=== PATIENT | female | born 2000 ===

== ENCOUNTER 2022-12-17 23:27 | Emergency (ER) | payer MEDICAID, SELFPAY ==
--- NOTE | ~2022-12-17 | XR_ITS ---
EXAMINATION: XR CHEST CLINICAL INFORMATION: Shortness of breath COMPARISON: None available. TECHNIQUE: PA and lateral views of the chest were obtained. FINDINGS: Lungs are clear. No consolidation, pneumothorax, or pleural effusion. Cardiac and mediastinal contours are normal. Pulmonary vasculature is unremarkable. Trachea is midline. Osseous structures are unremarkable. XR/XR chest 2V IMPRESSION: No acute cardiopulmonary findings.
[2022-12-17 23:30] VITALS: BP 128/61; PULSE 98; RESP 22; TEMP 36.6; O2SAT 95; BMI 33.3
--- OUTSIDE RECORDS SUMMARY | 2022-12-18 00:29 | XMS_ITS | Continuity of Care Document ---
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
--- NOTE | 2022-12-18 00:43 | PC.NURSE ---
patient was coming in for complaints of coughing patient is being seen by the doctor patient will continue to be monitored for safety
--- NOTE | 2022-12-18 00:50 | ED.SOB ---
HPI - SOB/Dyspnea General Chief Complaint: Dyspnea Stated Complaint: SoB Time Seen by Provider: 12/18/22 00:01 Source: patient and family Mode of arrival: ambulatory History of Present Illness HPI Narrative: 22-year-old female with history of asthma and complaints of ongoing cough and increasing shortness of breath over the past couple of days denies any chest pain. Related Data Previous Rx's Medication Instructions Recorded prednisone 20 mg tablet 40 mg PO DAILY 4 days #8 tabs 12/18/22 Allergies Allergy/AdvReac Type Severity Reaction Status Date / Time No Known Allergies Allergy Verified 12/18/22 00:55 Review of Systems Review of Systems: Pertinent positives and negatives as stated in HPI PMFSH Past Medical History Source: nursing notes reviewed Social History Social History Alcohol intake: never Smoked in Last 30 Days: No Use of substances other than those prescribed or required for medical reasons: No Advance Directives: No Advance Directives Information Provided: No Patient : No Physical Exam Vital Signs: Vital Signs: Last Vital Signs Temp 98 F 12/17/22 23:30 Pulse 98 12/17/22 23:30 Resp 22 H 12/17/22 23:30 BP 128/61 12/17/22 23:30 Pulse Ox 95 12/17/22 23:30 O2 Del Method Room Air 12/17/22 23:30 BMI result Body Mass Index 33.3 VITAL SIGNS: Reviewed. GENERAL: Well developed, well nourished, in no acute distress. HEAD: Normocephalic/atraumatic EYES: PERRLA, EOMI EARS: Ext canals without abnormality, TMs non-bulging and non-erythematous NOSE: Nares patent bilateral OROPHARYNX: no oral lesions noted, posterior pharynx clear and non-erythematous without noted tonsillar enlargement/erythema/exudates NECK: Supple, no adenopathy LUNGS: Normal breath sounds. No adventitious sounds or accessory muscle use. SpO2<95> CARDIOVASCULAR: Regular rate and rhythm without noted murmurs, no JVD or lower extremity edema. ABDOMEN: Soft, non-tender, non-distended with bowel sounds. MUSCULOSKELETAL: No tenderness, deformities, or effusions noted on gross inspection. EXTREMITIES: No cyanosis, clubbing or edema. SKIN: Inspection of the skin reveals no rashes NEUROLOGIC: Alert and oriented x 4. Strength and sensation to light touch were grossly intact x 4. Medical Decision Making Medical Decision Making MDM Narrative: 22-year-old female with history and clinical presentation consistent with asthma and/or viral URI. No pre she a mack of expiratory wheeze, persistent dry cough noted without sick contacts so lower clinical suspicion for COVID-19 infection. Suspect exacerbation by seasonal allergens. Chest x-ray negative for evidence to suggest a pneumonia. Lab Data Labs: Lab Results 12/18/22 Range/Units 00:18 Influenza Type A (PCR) Cancelled Influenza Type B (PCR) Cancelled RSV RNA Qual (PCR) Cancelled SARS-CoV-2 RNA (RT-PCR) Cancelled Radiology Impression Radiologist Impression: My interpretation is in agreement with radiology's impression. Discharge Plan Discharge Clinical Impression: Asthma with exacerbation Patient Disposition: Home, Self-Care Instructions: Asthma (DC), Acute Cough in Children (ED) Additional Instructions: 1. Recommend starting a daily Claritin (loratadine) with a Flonase (fluticasone). Recommend sleeping in a slightly elevated position to help reduce nighttime cough. 2. Recommend starting NyQuil prior to going to bed and using DayQuil for during the day for cough control. 3. Please complete the short course of steroids. 4. Follow-up with your primary care provider. Return to the ER for any worsening symptoms. Prescriptions: New prednisone 20 mg tablet 40 mg PO DAILY 4 Days Qty: 8 0RF
[2022-12-18 01:04] LABS: Influenza A PCR NEGATIVE (Negative); Influenza B PCR NEGATIVE (Negative); Resp Syncy Virus RNA Qual PCR NEGATIVE (Negative); SARS COV2 PCR INHOUSE NEGATIVE (Negative)
[2022-12-18] MEDS: predniSONE 20 MG TABLET 40 MG PO (01:26)
== END 2022-12-18 01:40 | disposition home or self-care (01) ==
PROVIDERS: Emergency Provider Student in an Organized Health Care Education/Training Program
DX: J45.901 Unspecified asthma with (acute) exacerbation (principal); R06.02 Shortness of breath; Z20.822 Contact with and (suspected) exposure to COVID-19; Z20.828 Contact with and (suspected) exposure to other viral communicable diseases
CPT/HCPCS: 0241U; 71046; 99283; 99284